=== PATIENT | male | born 1980 ===

== ENCOUNTER 2016-03-24 19:55 | Emergency (ER) | payer OTHER ==
[2016-03-24 20:41] VITALS: BP 130/73
[2016-03-24] MEDS ORDERED: Azithromycin TAB* 250 MG PO ONE (21:26)
--- NOTE | 2016-03-24 21:33 | UC ---
Complaint Male HPI - HPI Summary HPI Summary: Asymptomatic. went to [facility] and was found to have a ureaplasma infection on cervix. OB suggested her be treated even if asymptomatic. - History of Current Complaint Chief Complaint: UCGU Stated Complaint: PERSONAL Time Seen by Provider: 03/24/16 21:18 Hx Obtained From: Patient Severity Currently: None Location: None Associated Signs And Symptoms: Positive: Negative - Allergies/Home Medications Allergies/Adverse Reactions: Allergies Allergy/AdvReac Type Severity Reaction Status Date / Time Bee Venom Allergy Swelling Verified 03/24/16 20:40 PMH/Surg Hx/FS Hx/Imm Hx Previously Healthy: Yes - Surgical History Surgical History: None - Family History Known Family History: Positive: Other - no urinary disorders - Social History Occupation: Employed Full-time Alcohol Use: Occasionally Substance Use Type: None Smoking Status (MU): Never Smoked Tobacco - Immunization History Most Recent Tetanus Shot: 2 YEARS AGO Review of Systems Constitutional: Negative Skin: Negative Eyes: Negative ENT: Negative Respiratory: Negative Cardiovascular: Negative Gastrointestinal: Negative Genitourinary: Negative Motor: Negative Neurovascular: Negative Musculoskeletal: Negative Neurological: Negative Psychological: Negative All Other Systems Reviewed And Are Negative: Yes Physical Exam Triage Information Reviewed: Yes Appearance: Well-Appearing, No Pain Distress, Well-Nourished Vital Signs: Initial Vital Signs Temp 97.7 F 03/24/16 20:37 Pulse 73 03/24/16 20:37 Resp 14 03/24/16 20:37 BP 130/73 03/24/16 20:37 Pulse Ox 99 03/24/16 20:37 Vital Signs Reviewed: Yes Eye Exam: Normal Respiratory Exam: Normal Cardiovascular Exam: Normal Abdominal Exam: Normal Musculoskeletal Exam: Normal Neurological Exam: Normal Psychological Exam: Normal Skin Exam: Normal Complaint Male Course/Dx - Course Course Of Treatment: given Z-pack - Differential Dx/Diagnosis Provider Diagnoses: ureaplasma infection Discharge - Discharge Plan Condition: Stable Disposition: HOME Prescriptions: Azithromycin TAB* [Zithromax TAB (Z-ABRAHAM) 250 mg #6 tabs] 250 mg PO DAILY #4 tab Referrals: No Primary Care Phys,NOPCP [Primary Care Provider] - Additional Instructions: We are treating you to eradicate the possibility of ureaplasma and mycoplasma in the urinary tract. These bacteria can cause recurrent urinary tract infections in women.
== END 2016-03-24 21:46 | disposition home or self-care (01) ==
LOC: UCCORT 19:55
DX: A63.8 Other specified predominantly sexually transmitted diseases (principal)
CPT/HCPCS: 99202; A9270-GY; G0463

== ENCOUNTER 2016-10-20 10:45 | Emergency (ER) | payer OTHER ==
[2016-10-20 11:03] VITALS: BP 128/87
[2016-10-20] MEDS ORDERED: Aspirin Low Dose CHEW TAB* 81 MG PO ONE (12:11)
--- NOTE | 2016-10-20 12:18 | ED ---
HPI Chest Pain - HPI Summary HPI Summary: 36 yr old male with complaint of chest pain, palpitations, dizziness and diaphoresis. Onset this morning at 4 am. He was awakened with palpitations and felt like he was running fast, and he developed feeling of sweatiness. He developed a dull ache in his chest 05/17 that lasted a couple of hours. he went to work, and states he had episodes of feeling light headed and his heart racing fast again. He developed an ache in his chest again, and he came here to Urgent care from [place], [place] where he works for further evaluation. He states when he arrived here he had some chest pain, but now he has no pain at all, and no symptoms. - History of Current Complaint Chief Complaint: UCChestPain Time Seen by Provider: 10/20/16 11:18 - Allergy/Home Medications Allergies/Adverse Reactions: Allergies Allergy/AdvReac Type Severity Reaction Status Date / Time Bee Venom Allergy Swelling Verified 10/20/16 11:03 Home Medications: Home Medications NK [No Home Medications Reported] 10/20/16 [History Confirmed 10/20/16] PMH/Surg Hx/FS Hx/Imm Hx Previously Healthy: Yes - Surgical History Hx Anesthesia Reactions: No Infectious Disease History: No Infectious Disease History: Denies: Hx Clostridium Difficile, Hx Hepatitis, Hx Human Immunodeficiency Virus (HIV), Hx of Known/Suspected MRSA, Hx Shingles, Hx Tuberculosis, Hx Known/ Suspected VRE, Hx Known/Suspected VRSA, History Other Infectious Disease, Traveled Outside the in Last 30 Days - Family History Known Family History: Positive: Other - no urinary disorders - Social History Occupation: Employed Full-time Lives: With Family Alcohol Use: Daily Alcohol Amount: beer Substance Use Type: Reports: None, Excessive Caffeine. Denies: Cocaine Smoking Status (MU): Never Smoked Tobacco Review of Systems Constitutional: Negative Positive: Palpitations, Chest Pain Positive: Shortness Of Breath All Other Systems Reviewed And Are Negative: Yes Physical Exam Triage Information Reviewed: Yes Vital Signs On Initial Exam: Initial Vitals Temp Pulse Resp BP Pulse Ox 97.9 F 65 18 128/87 99 10/20/16 10:56 10/20/16 10:56 10/20/16 10:56 10/20/16 10:56 10/20/16 10:56 Vital Signs Reviewed: Yes Appearance: Positive: Well-Appearing, No Pain Distress Eyes: Positive: EOMI Neck: Positive: Nontender Respiratory/Lung Sounds: Positive: Clear to Auscultation, Breath Sounds Present Cardiovascular: Positive: RRR. Negative: Murmur Musculoskeletal: Positive: Strength/ROM Intact Neurological: Positive: Sensory/Motor Intact, Alert, Oriented to Person Place, Time, CN Intact II-III Psychiatric: Positive: Normal - [place] Coma Scale Best Eye Response: 4 - Spontaneous Best Motor Response: 6 - Obeys Commands Best Verbal Response: 5 - Oriented Diagnostics - Vital Signs Vital Signs Temp Pulse Resp BP Pulse Ox 10/20/16 10:56 97.9 F 65 18 128/87 99 - Laboratory Lab Statement: Any lab studies that have been ordered have been reviewed, and results considered in the medical decision making process. Chest Pain Course/Dx - Course Course Of Treatment: 36 yr old male with dizziness, palpitations, chest pain. refuses to go to the ER by ambulance despite risk of , disability, delay of care. He signed out AMA. - Diagnoses Provider Diagnoses: Chest pain, Palpitations, Dizziness Discharge - Discharge Plan Condition: Good Disposition: AGAINST MEDICAL ADVICE
[2016-10-21] MEDS ORDERED: Aspirin Low Dose CHEW TAB* 81 MG PO ONE (12:07)
== END 2016-10-20 12:16 | disposition left against medical advice (07) ==
LOC: UCCORT 10:45
DX: R07.9 Chest pain, unspecified (principal); R00.2 Palpitations; R42 Dizziness and giddiness
CPT/HCPCS: 93005; 99212; A9270-GY; G0463

== ENCOUNTER 2018-05-21 17:50 | Emergency (ER) | payer OTHER ==
[2018-05-21 18:25] VITALS: BP 156/98
--- NOTE | 2018-05-21 18:48 | UC ---
UC General HPI - HPI Summary HPI Summary: day 8 of sore throat. day 6 of cough. no fevr or asthma. + runny nose. cough resolves with Mucinex. - History of Current Complaint Chief Complaint: UCGeneralIllness Stated Complaint: COUGH/ST Time Seen by Provider: 05/21/18 18:42 Hx Obtained From: Patient Onset/Duration: Gradual Onset Timing: Constant Pain Intensity: 3 Associated Signs & Symptoms: Positive: Cough. Negative: Chest Pain, Fever, SOB - Allergy/Home Medications Allergies/Adverse Reactions: Allergies Allergy/AdvReac Type Severity Reaction Status Date / Time bee venom protein (honey bee) Allergy Swelling Verified 05/21/18 18:21 Home Medications: Home Medications Phenylephrine/Dm/Acetaminop/GG [Mucinex Fast-Max Cold Flu] 2 tab PO Q4H PRN [History Confirmed 05/21/18] PMH/Surg Hx/FS Hx/Imm Hx Previously Healthy: Yes - Surgical History Surgical History: None - Family History Known Family History: Positive: Other - no urinary disorders - Social History Occupation: Employed Full-time Alcohol Use: Weekly Alcohol Amount: beer Substance Use Type: None Smoking Status (MU): Former Smoker When Did the Patient Quit Smoking/Using Tobacco: 22 yrs ago - Immunization History Most Recent Tetanus Shot: 2 YEARS AGO Review of Systems All Other Systems Reviewed And Are Negative: Yes ENT: Positive: Sore Throat Respiratory: Positive: Cough Physical Exam Triage Information Reviewed: Yes Appearance: Well-Appearing Vital Signs: Initial Vital Signs Temp 97.3 F 05/21/18 18:22 Pulse 87 05/21/18 18:22 Resp 16 05/21/18 18:22 BP 156/98 05/21/18 18:22 Pulse Ox 100 05/21/18 18:22 Vital Signs Reviewed: Yes Eyes: Positive: Conjunctiva Clear ENT: Positive: Pharyngeal erythema, Nasal congestion, Nasal drainage - clear, TMs normal. Negative: Sinus tenderness Neck: Positive: Supple, Nontender, Enlarged Nodes @ - peritonsilar Respiratory: Positive: Lungs clear, Normal breath sounds, No respiratory distress Cardiovascular: Positive: RRR, No Murmur Abdomen Description: Positive: Nontender Musculoskeletal: Positive: ROM Intact Neurological: Positive: Alert Psychological: Positive: Age Appropriate Behavior Skin Exam: Normal Course/Dx - Course Course Of Treatment: RAPID STREP=NEGATIVE - Diagnoses Provider Diagnosis: URI (upper respiratory infection), Bronchitis Discharge - Sign-Out/Discharge Documenting (check all that apply): Patient Departure All imaging exams completed and their final reports reviewed: No Studies - Discharge Plan Condition: Stable Disposition: HOME Patient Education Materials: Upper Respiratory Infection (DC), Acute Bronchitis (ED) Referrals: Valentino Jones DO [Primary Care Provider] - Additional Instructions: follow up with primary care if not better in 3-5 days or sooner if worse. - Billing Disposition and Condition Condition: STABLE Disposition: Home
== END 2018-05-21 19:13 | disposition home or self-care (01) ==
LOC: UCCORT 17:50
DX: J06.9 Acute upper respiratory infection, unspecified (principal); J40 Bronchitis, not specified as acute or chronic; Z91.030 Bee allergy status; Z87.891 Personal history of nicotine dependence
CPT/HCPCS: 87651; 99211; G0463

== ENCOUNTER 2018-10-21 19:41 | Emergency (ER) | payer OTHER ==
[2018-10-21 20:36] VITALS: BP 137/96
[2018-10-21] MEDS ORDERED: Amoxicillin PO (*) 500 MG CAP PO ONE (20:45)
--- NOTE | 2018-10-21 20:45 | UC ---
Ear Complaint HPI - HPI Summary HPI Summary: pain and decreased hearing left ear worsening over a couple of days - History of Current Complaint Chief Complaint: UCEar Stated Complaint: LEFT EAR COMPLAINT Time Seen by Provider: 10/21/18 20:34 Hx Obtained From: Patient Onset/Duration: Gradual Onset, Lasting Days, Still Present, Worse Since - today Pain Intensity: 2 Pain Scale Used: 0-10 Numeric Aggravating Factors: Nothing Alleviating Factors: Nothing Associated Signs/Symptoms: Positive: Hearing Loss - Allergies/Home Medications Allergies/Adverse Reactions: Allergies Allergy/AdvReac Type Severity Reaction Status Date / Time bee venom protein (honey bee) Allergy Swelling Verified 10/21/18 20:36 PMH/Surg Hx/FS Hx/Imm Hx Previously Healthy: Yes - Surgical History Surgical History: None - Family History Known Family History: Positive: Other - no urinary disorders - Social History Occupation: Employed Full-time Lives: With Family Alcohol Use: None Alcohol Amount: beer Substance Use Type: None Smoking Status (MU): Former Smoker When Did the Patient Quit Smoking/Using Tobacco: 22 yrs ago - Immunization History Most Recent Tetanus Shot: 2 YEARS AGO Review of Systems All Other Systems Reviewed And Are Negative: Yes Constitutional: Positive: Negative Skin: Positive: Negative Eyes: Positive: Negative ENT: Positive: Ear Ache - left Respiratory: Positive: Negative Cardiovascular: Positive: Negative Gastrointestinal: Positive: Negative Genitourinary: Positive: Negative Motor: Positive: Negative Neurovascular: Positive: Negative Musculoskeletal: Positive: Negative Neurological: Positive: Negative Psychological: Positive: Negative Is Patient Immunocompromised?: No Physical Exam Triage Information Reviewed: Yes Appearance: Well-Appearing, No Pain Distress, Well-Nourished Vital Signs: Initial Vital Signs Temp 98.8 F 10/21/18 20:32 Pulse 89 10/21/18 20:32 Resp 18 10/21/18 20:32 BP 137/96 10/21/18 20:32 Pulse Ox 98 10/21/18 20:32 Vital Signs Reviewed: Yes Eye Exam: Normal Eyes: Positive: Conjunctiva Clear ENT Exam: Normal ENT: Positive: Normal ENT inspection, Hearing grossly normal, Pharynx normal, TMs normal - right, TM bulging - red with purulence behind drum, Uvula midline. Negative: Nasal congestion, Tonsillar swelling, Trismus, Muffled voice, Hoarse voice, Dental tenderness, Sinus tenderness Dental Exam: Normal Neck exam: Normal Neck: Positive: Supple, Nontender, No Lymphadenopathy Respiratory Exam: Normal Respiratory: Positive: Chest non-tender, Lungs clear, Normal breath sounds, No respiratory distress, No accessory muscle use Cardiovascular Exam: Normal Cardiovascular: Positive: RRR, No Murmur, Pulses Normal, Brisk Capillary Refill Musculoskeletal Exam: Normal Musculoskeletal: Positive: Strength Intact, ROM Intact, No Edema Neurological Exam: Normal Neurological: Positive: Alert, Muscle Tone Normal Psychological Exam: Normal Skin Exam: Normal Ear Complaint Course/Dx - Course Course Of Treatment: ibuprofen tylenol amoxicillin follow with pcp - Differential Dx/Diagnosis Provider Diagnosis: Left acute otitis media Discharge ED - Sign-Out/Discharge Documenting (check all that apply): Patient Departure All imaging exams completed and their final reports reviewed: No Studies - Discharge Plan Condition: Stable Disposition: HOME Prescriptions: Amoxicillin PO (*) [Amoxicillin 875 MG (*)] 875 mg PO BID #20 tab Patient Education Materials: Ibuprofen (By mouth), Ear Infection (ED) Referrals: Valentino Jones DO [Primary Care Provider] - If Needed - Billing Disposition and Condition Condition: STABLE Disposition: Home - Attestation Statements Provider Attestation: Per institutional requirements, I have reviewed the chart, however, I was not consulted specifically or made aware of this patient by the midlevel provider. I did not personally evaluate, interact with , or disposition this patient.
== END 2018-10-21 20:55 | disposition home or self-care (01) ==
LOC: UCCORT 19:41
DX: H66.92 Otitis media, unspecified, left ear (principal); Z91.030 Bee allergy status; Z87.891 Personal history of nicotine dependence
CPT/HCPCS: 99212; A9270-GY; G0463